=== PATIENT | male | born 1995 | race Caucasian/White ===

== ENCOUNTER 2020-07-14 02:12 | Emergency (ER) | payer BC, SELFPAY ==
--- NOTE | ~2020-07-14 | CT_ITS ---
EXAMINATION: CT facial bones wo [facility] EXAM DATE: 07/14/2020 03:47 INDICATION: Fall, facial injury. TECHNIQUE: Spiral CT of the facial bones was acquired in the axial plane without contrast. Coronal reformatted images were also reviewed. The dose-length product (DLP) for this examination was 304.87 mGy-cm. The exposure was tailored according to patient size, and iterative reconstruction (ASIR) wa s used as additional dose reduction technique. There is no prior study for comparison. FINDINGS: There are no displaced acute nasal bone fractures. The mandible, sinuses and orbits are in tact. The orbits, globes and extraocular muscles are unremarkable. The visualized sinuses and mas toid air cells are well aerated. There is right cheek fat stranding, a contusion. IMPRESSION: Right cheek contusion, no facial bone fracture. Reviewed, dictated and finalized at location A. [employer]
[2020-07-14 02:16] VITALS: BP 138/98; PULSE 103; RESP 15; TEMP 36.8; O2SAT 97
--- NOTE | 2020-07-14 02:24 | ED.GENADULT ---
HPI - General Adult General Chief complaint: Wound/Laceration Stated complaint: busted lip Time Seen by Provider: 07/14/20 02:20 Source: RN notes reviewed History of Present Illness HPI narrative: Patient presents to emergency department from home for laceration patient states he was walking down the [place] when he stumbled and tripped over his feet falling of the wall notes laceration over his right lip with mild venous bleeding he denies any other injuries denies any loss of consciousness denies any loose or avulsed teeth patient states he is unsure of his last tetanus shot denies any vision changes or numbness or tingling of the extremities Related Data Allergies Allergy/AdvReac Type Severity Reaction Status Date / Time amoxicillin Allergy Mild Rash Verified 07/14/20 02:20 Review of Systems Review of Systems: Narrative: Gen.: Denies fevers or chills Eyes: Denies eye pain or visual change ENT: Denies congestion denies loose or avulsed teeth Respiratory: Denies shortness of breath or cough CV: Denies chest pain or palpitations GI: Denies abdominal pain nausea, emesis or diarrhea denies burning, urgency, frequency or hematuria Musculoskeletal: Denies back pain or muscle pain Neuro: Denies numbness, tingling, weakness or focal weakness Skin: See HPI Except as documented, all other systems reviewed and negative PMFSH Past Medical History Medical History (Updated 07/14/20 @ 04:05 by Edgar Smith DO) Patient denies significant medical history Social History Social History (Updated 07/14/20 @ 02:25 by Edgar Smith DO) Smoking status: Current every day smoker Exam Narrative: Exam Narrative: APPEARANCE: No acute distress, nontoxic, resting in bed EYES: PERRL HEENT: Normocephalic, swelling ecchymosis over right cheek tenderness palpation, nares patent no loose or avulsed teeth RESPIRATORY: No respiratory distress Clear to auscultation bilaterally with no rhonchi wheezing or rales. CARDIOVASCULAR: Regular rate and rhythm without murmurs rubs or gallops. ABDOMINAL: Soft, nontender, nondistended, no rebound or guarding MUSCULOSKELETAl: Moves all extremities. No clubbing, cyanosis or edema. NEURO: Awake and alert x 4. Following commands, speech normal, no focal deficits SKIN:: Warm, dry. The right cheek lateral to the lip has a stellate laceration that is a total of 3 cm in length that is deep with no foreign bodies and mild venous bleeding it is a through and through laceration with a 0.5 cm laceration over the right inner lip PSYCHIATRIC: Normal affect/mood, Course Course Emergency Course: Discussed with patient results of workup and diagnosis. Discussed need for follow-up with primary care, proper use of medication, and reasons to return to the emergency department. Patient understands and agrees to current treatment plan Vital Signs Vital signs: Vital Signs Temperature 98.2 F 07/14/20 02:16 Pulse Rate 103 H 07/14/20 02:16 Respiratory Rate 15 07/14/20 02:16 Blood Pressure 138/98 H 07/14/20 02:16 Pulse Oximetry 97 07/14/20 02:16 Temperature 98.2 F 07/14/20 02:16 Pulse Rate 103 H 07/14/20 02:16 Respiratory Rate 15 07/14/20 02:16 Blood Pressure 138/98 H 07/14/20 02:16 Pulse Oximetry 97 07/14/20 02:16 Procedures Laceration Laceration 1: ====== Skin Level ====== ====== Subcutaneous Layer ====== ====== Muscle Layer ====== ====== Tendon Layer ====== Dressin cm stellate laceration right cheek verbal consent was obtained prior to the procedure. The wound was cleaned with Betadine and irrigated with copious amounts of normal saline. Lidocaine 1% was used for anesthesia. Wound was explored is no foreign body seen. The wound was then closed with 5 5-0 nylon in simple interrupted fashion. A sterile dressing was applied following the procedure. Patient tolerated the procedure well Laceration 2: ====== Skin Level ====== ====== He
[2020-07-14] MEDS: TETANUS,DIPHTHERIA,AC PERTUSSIS ADULT (0.5 ML) BOOSTRIX IM (02:47)
[2020-07-14] MEDS: CLINDAMYCIN HCL 150 MG CAP 300 MG PO (04:06)
[2020-07-14 04:12] VITALS: BP 125/81; PULSE 74; RESP 16; TEMP 36.7; O2SAT 98
== END 2020-07-14 04:12 | disposition home or self-care (01) ==
PROVIDERS: Emergency Provider Emergency Medicine
DX: S01.511A Laceration without foreign body of lip, initial encounter (principal); S01.411A Laceration without foreign body of right cheek and temporomandibular area, initial encounter; Z23 Encounter for immunization; W01.0XXA Fall on same level from slipping, tripping and stumbling without subsequent striking against object, initial encounter
CPT/HCPCS: 12013; 70486; 90471; 90715; 99284; A9270